=== PATIENT | female | born 1955 | race African-American/Black ===

== ENCOUNTER 2018-04-03 16:35 | Inpatient (IN) | payer MEDICAID ==
[~2018-04-03] VITALS: Ht 162.6 cm; Wt 72.6 kg
[~2018-04-03 16:35] MED LIST: ALBU6.7H INH; FAMO-134 PO; HYDR-4001 PO; NITR100C PO; S350 PO
[2018-04-03] MEDS ORDERED: PEPCID (17:09)
[2018-04-03] MEDS ORDERED: GABA800T97 MT (17:09)
[2018-04-03 22:54] LABS: CLARITY URINE CLEAR (CLEAR); COLOR URINE YELLOW (YELLOW); KETONES URINE NEGATIVE (NEGATIVE); LEUKOCYTE ESTERASE URINE 1+ (NEGATIVE); NITRITE URINE POSITIVE (NEGATIVE); OCCULT BLOOD URINE NEGATIVE (NEGATIVE); PROTEIN URINE NEGATIVE (NEGATIVE); SPECIFIC GRAVITY URINE 1.017 (1.005-1.030); UROBILINOGEN URINE 0.2 E.U./dL (0.2-1.0)
[2018-04-03 23:08] LABS: BASOPHILS % 0.6 % (0.0-2.0); EOSINOPHILS % 2.5 % (0.0-5.0); HEMATOCRIT. 37.6 % (36.0-48.0); HEMOGLOBIN. 12.5 g/dL (12.0-16.0); LYMPHOCYTES % 41.4 % (20.0-50.0); MEAN CORPUSCULAR HEMOGLOBIN 31.8 pg (28.0-32.0); MEAN CORPUSCULAR VOLUME 95.2 fL (81.0-99.0); MEAN PLATELET VOLUME 12.1 fl (7.4-10.4); NEUTROPHILS % 46.5 % (40.0-76.0); PLATELET 105 x1000/uL (130-400); RED BLOOD CELL COUNT 3.95 mill/uL (4.2-5.4); RED CELL DISTRIBUTION WIDTH 13.9 % (11.6-14.6)
[2018-04-03 23:09] LABS: *AMPHETAMINES SCREEN URINE NEGATIVE (NEGATIVE); *BARBITURATES SCREEN URINE NEGATIVE (NEGATIVE)
[2018-04-03 23:10] LABS: *BENZODIAZEPINES SCREEN URINE NEGATIVE (NEGATIVE); *COCAINE SCREEN URINE NEGATIVE (NEGATIVE); CANNABINOID URINE SCREEN NEGATIVE (NEGATIVE); METHADONE URINE SCREEN NEGATIVE (NEGATIVE); OPIATES URINE SCREEN PRESUMTIVE POSITIVE (NEGATIVE); PHENCYCLIDINE URINE SCREEN NEGATIVE (NEGATIVE)
[2018-04-03 23:15] LABS: CHLORIDE 108 mEq/L (98-107)
[2018-04-04] MEDS ORDERED: KETOROLAC 60MG/2ML VIAL IM ONE
[2018-04-04] MEDS ORDERED: MORPHINE SULFATE 4 MG/ML CPJ (NOT FOR IM USE) IV ONE (00:30)
[2018-04-04] MEDS ORDERED: MORPHINE SULFATE 2 MG/ML CPJ (NOT FOR IM USE) IV SCH ×2 (01:15→04:45)
[2018-04-04] MEDS ORDERED: MORPHINE SULFATE 2 MG/ML CPJ (NOT FOR IM USE) IV ONE (01:15)
[2018-04-04] MEDS ORDERED: MAGNESIUM/ALUMINUM HYDROXIDE/SIMETHICONE 30ML UDC PO PRN (11:15)
[2018-04-04] MEDS ORDERED: ONDANSETRON HCL 4MG/2ML INJ IV PRN (11:15)
[2018-04-04] MEDS ORDERED: IPRATROPIUM/ALBUTEROL 0.5-3(2.5)MG/3ML NEB INH PRN (11:15)
[2018-04-04] MEDS ORDERED: DOCUSATE SODIUM 100MG CAPSULE PO PRN (11:15)
[2018-04-04] MEDS ORDERED: LEVOFLOXACIN 500MG PREMIX 100 ML IV NR (12:15)
[2018-04-04] MEDS: HYDROCODONE/ACETAMINOPHEN 5/325MG TABLET PO PRN ×3 (12:17→20:24)
[2018-04-04] MEDS: ACETAMINOPHEN 325MG TABLET PO PRN (16:09)
[2018-04-04] MEDS ORDERED: PROP40TA7 MT (16:57)
[2018-04-04 18:08] VITALS: BP 168/84
[2018-04-04] MEDS: LEVOFLOXACIN 500MG PREMIX 100 ML IV SCH (18:50)
[2018-04-04 20:00] VITALS: BP 152/83
[2018-04-04] MEDS ORDERED: MORPHINE SULFATE 2 MG/ML CPJ (NOT FOR IM USE) IV PRN (22:15)
[2018-04-04] MEDS: MORPHINE SULFATE 10MG/5ML ORAL SOLN UDC PO PRN (22:36)
[2018-04-04] MEDS: ONDANSETRON HCL 4MG/2ML INJ IV PRN (22:47)
[2018-04-05] VITALS (7 sets, daily range): BP systolic 132–173; BP diastolic 79–100
[2018-04-05] MEDS: HYDROCODONE/ACETAMINOPHEN 5/325MG TABLET PO PRN ×3 (04:08→21:22)
[2018-04-05 06:43] LABS: BASOPHILS % 0.4 % (0.0-2.0); EOSINOPHILS % 2.9 % (0.0-5.0); HEMATOCRIT. 37.6 % (36.0-48.0); HEMOGLOBIN. 12.3 g/dL (12.0-16.0); MEAN CORPUSCULAR HEMOGLOBIN 31.5 pg (28.0-32.0); MEAN CORPUSCULAR VOLUME 96.6 fL (81.0-99.0); MEAN PLATELET VOLUME 12.1 fl (7.4-10.4); MONOCYTES % 11.4 % (2.0-8.0); NEUTROPHILS % 45.3 % (40.0-76.0); PLATELET 99 x1000/uL (130-400); RED BLOOD CELL COUNT 3.89 mill/uL (4.2-5.4); RED CELL DISTRIBUTION WIDTH 13.8 % (11.6-14.6)
[2018-04-05] MEDS ORDERED: DEXTROSE 50% WATER 50ML SYRINGE IV PRN (07:45)
[2018-04-05] MEDS: INSULIN LISPRO 100 UNITS/ML SUBCUT SCH ×4 (07:50→21:00)
[2018-04-05] MEDS: BLOOD SUGAR DIAGNOSTIC STRIP TEST SCH ×4 (07:56→20:52)
[2018-04-05 07:58] LABS: CHLORIDE 109 mEq/L (98-107)
[2018-04-05 08:12] LABS: LDL CHOLESTEROL 91 mg/dL (5-100); T4 FREE 0.95 ng/dL (0.76-1.46)
[2018-04-05 08:13] LABS: HDL CHOLESTEROL 59 mg/dL (40-59)
[2018-04-05] MEDS: MORPHINE SULFATE 10MG/5ML ORAL SOLN UDC PO PRN ×4 (08:47→23:26)
[2018-04-05] MEDS: AMLODIPINE 5MG TABLET PO SCH ×2 (13:57→20:47)
[2018-04-05] MEDS: LEVOFLOXACIN 500MG PREMIX 100 ML IV SCH (19:44)
[2018-04-05] MEDS: METOPROLOL TARTRATE 25MG TABLET PO SCH (20:48)
[2018-04-05] MEDS ORDERED: AMLODIPINE 5MG TABLET PO SCH ×2 (21:00)
[2018-04-06] VITALS: BP 163/92
[2018-04-06] MEDS: HYDROCODONE/ACETAMINOPHEN 5/325MG TABLET PO PRN ×5 (03:26→21:43)
[2018-04-06] MEDS: CLONIDINE 0.1MG TABLET PO PRN (03:30)
[2018-04-06 04:00] VITALS: BP 142/82
[2018-04-06] MEDS: ONDANSETRON HCL 4MG/2ML INJ IV PRN ×2 (06:55→13:02)
[2018-04-06 07:32] LABS: BASOPHILS % 0.3 % (0.0-2.0); EOSINOPHILS % 1.8 % (0.0-5.0); HEMATOCRIT. 38.1 % (36.0-48.0); HEMOGLOBIN. 12.7 g/dL (12.0-16.0); LYMPHOCYTES % 26.4 % (20.0-50.0); MEAN CORPUSCULAR HEMOGLOBIN 31.9 pg (28.0-32.0); MEAN CORPUSCULAR VOLUME 95.4 fL (81.0-99.0); MEAN PLATELET VOLUME 11.7 fl (7.4-10.4); MONOCYTES % 9.6 % (2.0-8.0); NEUTROPHILS % 61.9 % (40.0-76.0); PLATELET 103 x1000/uL (130-400); RED BLOOD CELL COUNT 3.99 mill/uL (4.2-5.4); RED CELL DISTRIBUTION WIDTH 13.5 % (11.6-14.6)
[2018-04-06 07:35] LABS: CHLORIDE 105 mEq/L (98-107)
[2018-04-06] MEDS: INSULIN LISPRO 100 UNITS/ML SUBCUT SCH ×4 (07:50→21:00)
[2018-04-06] MEDS: BLOOD SUGAR DIAGNOSTIC STRIP TEST SCH ×4 (07:55→21:43)
[2018-04-06 08:00] VITALS: BP 137/79
[2018-04-06] MEDS: AMLODIPINE 5MG TABLET PO SCH ×2 (08:55→20:39)
[2018-04-06] MEDS: METOPROLOL TARTRATE 25MG TABLET PO SCH ×2 (08:55→20:40)
[2018-04-06 12:00] VITALS: BP 150/73
[2018-04-06 16:00] VITALS: BP 148/81
[2018-04-06] MEDS: LEVOFLOXACIN 500MG PREMIX 100 ML IV SCH (18:00)
[2018-04-06 20:00] VITALS: BP 170/94
[2018-04-07] VITALS (7 sets, daily range): BP systolic 107–173; BP diastolic 62–101
[2018-04-07] MEDS: CLONIDINE 0.1MG TABLET PO PRN ×2 (00:18→20:17)
[2018-04-07] MEDS: HYDROCODONE/ACETAMINOPHEN 5/325MG TABLET PO PRN ×4 (02:14→21:02)
[2018-04-07 06:55] LABS: BASOPHILS % 0.3 % (0.0-2.0); EOSINOPHILS % 0.6 % (0.0-5.0); HEMATOCRIT. 40.5 % (36.0-48.0); HEMOGLOBIN. 13.6 g/dL (12.0-16.0); LYMPHOCYTES % 22.4 % (20.0-50.0); MEAN CORPUSCULAR HEMOGLOBIN 31.8 pg (28.0-32.0); MEAN CORPUSCULAR VOLUME 94.6 fL (81.0-99.0); MEAN PLATELET VOLUME 12.3 fl (7.4-10.4); MONOCYTES % 11.4 % (2.0-8.0); NEUTROPHILS % 65.3 % (40.0-76.0); PLATELET 116 x1000/uL (130-400); RED BLOOD CELL COUNT 4.28 mill/uL (4.2-5.4); RED CELL DISTRIBUTION WIDTH 13.6 % (11.6-14.6)
[2018-04-07] MEDS: INSULIN LISPRO 100 UNITS/ML SUBCUT SCH ×4 (07:08→20:25)
[2018-04-07] MEDS: BLOOD SUGAR DIAGNOSTIC STRIP TEST SCH ×4 (07:08→20:25)
[2018-04-07 08:14] LABS: CHLORIDE 104 mEq/L (98-107)
[2018-04-07] MEDS: AMLODIPINE 5MG TABLET PO SCH ×2 (09:00→20:16)
[2018-04-07] MEDS: METOPROLOL TARTRATE 25MG TABLET PO SCH ×2 (09:00→20:17)
[2018-04-07] MEDS ORDERED: HYDROMORPHONE HCL/PF 2MG/ML CPJ IV NR (13:00)
[2018-04-07] MEDS ORDERED: LEVOFLOXACIN 500MG TABLET PO SCH (17:00)
[2018-04-08] VITALS: BP 129/81
[2018-04-08] MEDS: HYDROCODONE/ACETAMINOPHEN 5/325MG TABLET PO PRN ×5 (01:10→22:34)
[2018-04-08 04:00] VITALS: BP 143/76
[2018-04-08 06:09] LABS: CHLORIDE 104 mEq/L (98-107)
[2018-04-08 06:24] LABS: HEMATOCRIT. 41.5 % (36.0-48.0); HEMOGLOBIN. 13.8 g/dL (12.0-16.0); MEAN CORPUSCULAR HEMOGLOBIN 31.4 pg (28.0-32.0); MEAN CORPUSCULAR VOLUME 94.4 fL (81.0-99.0); MEAN PLATELET VOLUME 12.2 fl (7.4-10.4); PLATELET 112 x1000/uL (130-400); RED CELL DISTRIBUTION WIDTH 13.3 % (11.6-14.6)
[2018-04-08] MEDS: INSULIN LISPRO 100 UNITS/ML SUBCUT SCH ×4 (07:49→21:00)
[2018-04-08] MEDS: BLOOD SUGAR DIAGNOSTIC STRIP TEST SCH ×4 (07:49→21:29)
[2018-04-08 08:00] VITALS: BP 151/85
[2018-04-08] MEDS: METOPROLOL TARTRATE 25MG TABLET PO SCH ×2 (09:29→21:29)
[2018-04-08] MEDS: AMLODIPINE 5MG TABLET PO SCH ×2 (09:29→21:28)
[2018-04-08 10:43] LABS: PLATELET ESTIMATE DECREASED
[2018-04-08 12:00] VITALS: BP 146/84
[2018-04-08] MEDS: MORPHINE SULFATE 10MG/5ML ORAL SOLN UDC PO PRN ×2 (12:51→19:47)
[2018-04-08] MEDS: MEROPENEM 1000MG in NORMAL SALINE 100ML IV SCH ×2 (15:35→22:33)
[2018-04-08 16:00] VITALS: BP 142/87
[2018-04-08 20:00] VITALS: BP 128/70
[2018-04-09] MEDS: MORPHINE SULFATE 10MG/5ML ORAL SOLN UDC PO PRN ×5 (00:29→21:22)
[2018-04-09] MEDS: HYDROCODONE/ACETAMINOPHEN 5/325MG TABLET PO PRN (03:05)
[2018-04-09 04:00] VITALS: BP 131/79
[2018-04-09 05:40] LABS: HEMATOCRIT. 44.1 % (36.0-48.0); HEMOGLOBIN. 14.8 g/dL (12.0-16.0); MEAN PLATELET VOLUME 12.3 fl (7.4-10.4); PLATELET 110 x1000/uL (130-400); RED BLOOD CELL COUNT 4.64 mill/uL (4.2-5.4); RED CELL DISTRIBUTION WIDTH 13.7 % (11.6-14.6)
[2018-04-09 05:46] LABS: CHLORIDE 105 mEq/L (98-107)
[2018-04-09] MEDS: MEROPENEM 1000MG in NORMAL SALINE 100ML IV SCH ×2 (05:55→16:14)
[2018-04-09] MEDS: BLOOD SUGAR DIAGNOSTIC STRIP TEST SCH ×4 (05:56→22:02)
[2018-04-09] MEDS: INSULIN LISPRO 100 UNITS/ML SUBCUT SCH ×4 (06:07→22:36)
[2018-04-09 08:00] VITALS: BP 142/83
[2018-04-09 08:24] LABS: PLATELET ESTIMATE DECREASED
[2018-04-09] MEDS: METOPROLOL TARTRATE 25MG TABLET PO SCH ×2 (08:55→21:51)
[2018-04-09] MEDS: AMLODIPINE 5MG TABLET PO SCH ×2 (08:55→21:51)
[2018-04-09 12:00] VITALS: BP 141/78
[2018-04-09] MEDS: DEXAMETHASONE 4MG/ML 1ML VIAL IV SCH ×2 (14:09→17:01)
[2018-04-09 20:00] VITALS: BP 132/60
[2018-04-10] VITALS: BP 109/64
[2018-04-10] MEDS: DEXAMETHASONE 4MG/ML 1ML VIAL IV SCH ×3 (01:19→12:00)
[2018-04-10] MEDS: MEROPENEM 1000MG in NORMAL SALINE 100ML IV SCH ×2 (01:19→09:05)
[2018-04-10] MEDS: ACETAMINOPHEN 325MG TABLET PO PRN (01:19)
[2018-04-10 04:00] VITALS: BP 140/83
[2018-04-10] MEDS: INSULIN LISPRO 100 UNITS/ML SUBCUT SCH ×2 (07:41→12:50)
[2018-04-10] MEDS: BLOOD SUGAR DIAGNOSTIC STRIP TEST SCH ×2 (07:41→12:20)
[2018-04-10 08:00] VITALS: BP 139/73
[2018-04-10] MEDS: AMLODIPINE 5MG TABLET PO SCH (09:04)
[2018-04-10] MEDS: METOPROLOL TARTRATE 25MG TABLET PO SCH (09:04)
[2018-04-10 09:41] LABS: BASOPHILS % 0.1 % (0.0-2.0); HEMATOCRIT. 42.5 % (36.0-48.0); MEAN CORPUSCULAR HEMOGLOBIN 31.8 pg (28.0-32.0); MEAN CORPUSCULAR VOLUME 96.7 fL (81.0-99.0); MEAN PLATELET VOLUME 12.6 fl (7.4-10.4); MONOCYTES % 2.2 % (2.0-8.0); NEUTROPHILS % 89.7 % (40.0-76.0); PLATELET 71 x1000/uL (130-400)
[2018-04-10 10:02] LABS: CHLORIDE 108 mEq/L (98-107)
[2018-04-10] MEDS ORDERED: HYDROCODONE/ACETAMINOPHEN 5/325MG TABLET PO PRN (10:32)
[2018-04-10] MEDS ORDERED: MORPHINE SULFATE 10MG/5ML ORAL SOLN UDC PO PRN (10:32)
[2018-04-10 12:00] VITALS: BP 143/83
[2018-04-10 12:55] VITALS: BP 143/83
== END 2018-04-10 14:40 | disposition home or self-care (01) | DRG 347 ==
LOC: EDBEDREQTM 04-04 02:06 → EDBEDREQ 04-04 02:06 → ER 04-04 03:21 → 6EST 04-04 14:15 → EDBEDREQSVC 04-04 14:16 → EDBEDREQ 04-04 14:19 → ENRESERV 04-04 15:29
PROVIDERS: ADMIT Internal Medicine; ATTEND Internal Medicine
DX: M47.26 Other spondylosis with radiculopathy, lumbar region (principal); E66.01 Morbid (severe) obesity due to excess calories; M48.061 Spinal stenosis, lumbar region without neurogenic claudication; N39.0 Urinary tract infection, site not specified; M48.02 Spinal stenosis, cervical region; E11.9 Type 2 diabetes mellitus without complications; N20.0 Calculus of kidney; G89.29 Other chronic pain; I10 Essential (primary) hypertension; F17.210 Nicotine dependence, cigarettes, uncomplicated; J44.9 Chronic obstructive pulmonary disease, unspecified; M43.17 Spondylolisthesis, lumbosacral region; M19.90 Unspecified osteoarthritis, unspecified site; Z53.29 Procedure and treatment not carried out because of patient's decision for other reasons; Z16.12 Extended spectrum beta lactamase (ESBL) resistance; Z79.899 Other long term (current) drug therapy; Z68.27 Body mass index [BMI] 27.0-27.9, adult; Z88.1 Allergy status to other antibiotic agents
CPT/HCPCS: 36415; 71045; 72141; 72146; 72148; 74176; 80048; 80061; 80305; 82962; 84439; 84443; 84481; 87077; 87186; 93005; 93306; 93970; 96374; 96375; 97162; 99285; A4565; C1893; J1100; J1170; J1815; J1885; J1956; J2185; J2270; J2405; J7040

== ENCOUNTER 2020-01-13 06:41 | Emergency (ER) | payer MEDICAID ==
[~2020-01-13] VITALS: Ht 162.6 cm; Wt 64.0 kg
[~2020-01-13 06:41] MED LIST changes: -ALBU6.7H INH; +ALBU6.7H11 INH; +CARI350T28 PO; +GABA800T97 MT; +PEPCID; +PROP40TA7 MT; -S350 PO
[2020-01-13] MEDS ORDERED: KETOROLAC 30MG/ML VIAL IV ONE (08:00)
[2020-01-13 10:45] VITALS: BP 120/84
== END 2020-01-13 10:49 | disposition home or self-care (01) ==
LOC: ER 06:46
DX: R51 Headache (principal); E78.00 Pure hypercholesterolemia, unspecified; I10 Essential (primary) hypertension; Z88.1 Allergy status to other antibiotic agents; Z79.899 Other long term (current) drug therapy
CPT/HCPCS: 70450; 70486; 72125; 93005; 96374; 99285; J1885

== ENCOUNTER 2020-02-06 19:24 | Emergency (ER) | payer MEDICAID ==
[~2020-02-06] VITALS: Ht 167.6 cm; Wt 75.0 kg
[2020-02-06 21:29] VITALS: BP 115/66
[2020-02-06] MEDS ORDERED: KETOROLAC 30MG/ML VIAL IM ONE (22:30)
== END 2020-02-07 00:13 | disposition home or self-care (01) ==
LOC: ER 19:24
DX: G89.29 Other chronic pain (principal); M54.9 Dorsalgia, unspecified; J45.909 Unspecified asthma, uncomplicated; I10 Essential (primary) hypertension; Z79.899 Other long term (current) drug therapy; Z88.0 Allergy status to penicillin
CPT/HCPCS: 93005; 96372; 99283; J1885

== ENCOUNTER 2020-05-01 19:43 | Emergency (ER) | payer MEDICAID ==
[~2020-05-01] VITALS: Ht 160 cm; Wt 60.0 kg
[2020-05-01 20:12] VITALS: BP 136/105
[2020-05-01] MEDS ORDERED: ACETAMINOPHEN 325MG TABLET PO ONE (21:00)
[2020-05-01 21:23] LABS: CLARITY URINE TURBID (CLEAR); COLOR URINE YELLOW (YELLOW); KETONES URINE TRACE (NEGATIVE); LEUKOCYTE ESTERASE URINE 1+ (NEGATIVE); NITRITE URINE NEGATIVE (NEGATIVE); OCCULT BLOOD URINE NEGATIVE (NEGATIVE); PROTEIN URINE 2+ (NEGATIVE); SPECIFIC GRAVITY URINE 1.024 (1.005-1.030)
== END 2020-05-02 01:59 | disposition home or self-care (01) ==
LOC: ER 19:43
DX: G89.29 Other chronic pain (principal); R51.9 Headache, unspecified; M48.00 Spinal stenosis, site unspecified; E11.9 Type 2 diabetes mellitus without complications; Z88.0 Allergy status to penicillin
CPT/HCPCS: 81003; 82962; 99283